=== PATIENT | male | born 1935 | race Caucasian/White ===

== ENCOUNTER → 2018-04-23 | Outpatient (REF) | payer MEDICARE ==
[2018-04-23 13:24] LABS: APPEARANCE, URINE HAZY (CLEAR); BACTERIA, URINE AUTO NEGATIVE (NEGATIVE); BILIRUBIN, URINE AUTO NEGATIVE (NEGATIVE); BLOOD, URINE BLOOD NEGATIVE (NEGATIVE); COLOR, URINE YELLOW (YELLOW); GLUCOSE, URINE (UA) AUTO NEGATIVE (NEGATIVE); KETONE, URINE AUTO TRACE mg/dL (NEGATIVE); LEUKOCYTE ESTERASE, URINE AUTO NEGATIVE (NEGATIVE); MUCUS, URINE SMALL (NEGATIVE); NITRITE, URINE AUTO NEGATIVE (NEGATIVE); PROTEIN, URINE AUTO NEGATIVE (NEGATIVE); RBC, URINE AUTO 1 /HPF (0-3); SPECIFIC GRAVITY URINE AUTO 1.025 (1.002-1.035); SQUAMOUS EPITHELIAL CELL UR AU 0 /HPF (0-6); UROBILINOGEN, URINE AUTO 0.2 mg/dL (0.0-2.0); WBC, URINE AUTO 1 /HPF (0-3)
== END ==
LOC: M SMT 12:53
DX: N40.1 Benign prostatic hyperplasia with lower urinary tract symptoms (principal)
CPT/HCPCS: 81001

== ENCOUNTER → 2018-09-08 | Outpatient (REF) | payer MEDICARE | LOC: M SMT 12:54 | DX: N40.1 Benign prostatic hyperplasia with lower urinary tract symptoms (principal) | CPT/HCPCS: 87086 ==

== ENCOUNTER → 2019-02-24 | Outpatient (CLI) | payer MEDICARE ==
--- NOTE | 2019-02-24 15:56 | REP ---
HISTORY: Cough. COMPARISON: None. There is left CP angle blunting. There has been previous median sternotomy. The heart is not enlarged. Chronic change is seen involving the imaged spine. IMPRESSION: Left CP angle blunting of uncertain etiology. There are no priors for comparison. Chest CT is warranted. Electronically Signed by Jas Mendez DO 02/24/2019 04:35 P
== END ==
LOC: M WUC 11:46
PROVIDERS: ATTEND Family Medicine
DX: R91.8 Other nonspecific abnormal finding of lung field (principal)

== ENCOUNTER → 2019-05-11 | Outpatient (REF) | payer MEDICARE ==
[2019-05-11 13:26] LABS: BASO # 0.1 10^3/uL (0.0-0.2); BASO % 0.7 % (0.0-1.0); EOS # 0.3 10^3/uL (0.0-0.50); EOS % 3.2 % (0.0-3.0); HEMATOCRIT 52.1 % (42.0-52.0); HEMOGLOBIN 16.5 g/dl (13.5-17.5); LYMPH % 23.3 % (24.0-44.0); MEAN CORPUSCULAR HGB CONC 31.7 g/dl (32.0-36.5); MEAN CORPUSCULAR VOLUME 94.7 fl (80.0-96.0); MONO # 0.8 10^3/uL (0.0-0.8); NEUTROPHILS # 5.6 10^3/uL (1.8-7.7); NEUTROPHILS % 63.5 % (36.0-66.0); PLATELET COUNT, AUTOMATED 185 10^3/uL (150-450); WHITE BLOOD COUNT 8.8 10^3/uL (4.0-10.0)
[2019-05-11 13:52] LABS: HEMOGLOBIN A1c 6.1 %
[2019-05-11 14:02] LABS: ERYTHROCYTE SEDIMENTATION RATE 2 mm/hr (0-20)
[2019-05-11 14:06] LABS: ALBUMIN 3.4 GM/DL (3.2-5.2); ALT/SGPT 48 U/L (12-78); BILIRUBIN,TOTAL 0.5 MG/DL (0.2-1.0); BLOOD UREA NITROGEN 18 MG/DL (7-18); CALCIUM LEVEL 8.8 MG/DL (8.8-10.2); CARBON DIOXIDE LEVEL 28 MEQ/L (21-32); CHLORIDE LEVEL 107 MEQ/L (98-107); FOLATE > 24.0 NG/ML (>5.4); FREE T4 0.87 NG/DL (0.76-1.46); GLOMERULAR FILTRATION RATE > 60.0 (>35); GLUCOSE, FASTING 83 MG/DL (70-100); POTASSIUM SERUM 4.3 MEQ/L (3.5-5.1); RHEUMATOID FACTOR QUANT < 10.0 IU/ML (<15.0); SODIUM LEVEL 142 MEQ/L (136-145); TOTAL PROTEIN 6.1 GM/DL (6.4-8.2); VITAMIN B12 LEVEL 502 PG/ML (247-911)
[2019-05-14 14:07] LABS: ANTINUCLEAR ANTIBODIES DIRECT Negative (Negative); VITAMIN B1 LEVEL WHOLE BLOOD 188.8 nmol/L (66.5-200.0); VITAMIN B6,PYRIDOXAL PHOSPHATE 21.3 ug/L (5.3-46.7); VITAMIN E(ALPHA TOCOPHEROL) 13.3 mg/L (9.0-29.0); VITAMIN E(GAMMA TOCOPHEROL) 0.3 mg/L (0.5-4.9)
== END ==
LOC: M LABNEURO 11:19
PROVIDERS: ATTEND Psychiatry & Neurology Neurology
DX: Z11.3 Encounter for screening for infections with a predominantly sexual mode of transmission (principal); F03.90 Unspecified dementia, unspecified severity, without behavioral disturbance, psychotic disturbance, mood disturbance, and anxiety; E07.9 Disorder of thyroid, unspecified; E11.9 Type 2 diabetes mellitus without complications

== ENCOUNTER 2020-09-05 14:03 | Inpatient (IN) | payer MEDICARE ==
[~2020-09-05] VITALS: Ht 180.3 cm; Wt 84.3 kg
[2020-09-05] MEDS ORDERED: MEMA10TA19 PO (14:15)
[2020-09-05] MEDS ORDERED: ATOR40TA75 PO (14:15)
[2020-09-05] MEDS ORDERED: DONE10TA90 PO (14:15)
[2020-09-05] MEDS ORDERED: VITA50005 PO (14:15)
--- NOTE | 2020-09-05 14:46 | REP ---
INDICATION: AMS. COMPARISON: None. TECHNIQUE: Standard noncontrast protocol with soft tissue and bone windows for each slice level. Coronal reconstructions provided. FINDINGS: Lateral ventricles are midline symmetric dilated proportionate to the moderately severe diffuse atrophy. Third and 4th ventricles are also mildly dilated that atrophy is greatest in the frontal and temporal lobes but is present throughout. Basal ganglia symmetric there heterogeneous low-attenuation white matter changes bilaterally representing chronic small vessel white matter ischemic disease. There is no vascular territory infarct, intracranial hemorrhage, mass or mass effect. Brainstem intact. Cerebellum shows moderately severe atrophy. No posterior fossa hemorrhage. Skull base bone windows show the mastoids, sphenoids and frontal sinuses clear. There is mucosal thickening and left maxillary sinus. Right maxillary and ethmoids visualized in part and were unremarkable. There is no fracture or focal lesion of the skull base or calvarium. Atherosclerotic calcifications of the carotid siphons. IMPRESSION: 1. Chronic small-vessel white matter ischemic changes of aging with proportionate ventriculomegaly and a moderately severe diffuse cerebral and cerebellar atrophy. No acute infarct, intracranial hemorrhage, mass or mass effect. 2. No fracture of the skull base or calvarium. Mastoids, sphenoids and frontal sinuses clear. There is mucosal thickening in the left maxillary antrum. <Electronically signed by Everton Ivory > 09/05/20 [id number]
--- NOTE | 2020-09-05 15:09 | REP ---
INDICATION: AMS. COMPARISON: Comparison chest x-ray February 24, 2019. TECHNIQUE: Two views.. FINDINGS: Median sternotomy wires and mediastinal clips are noted. The lungs are symmetrically aerated. There is a linear density in the left base consistent with discoid atelectasis and/or fibrosis. Pleural angles are sharp. Mild cardiomegaly is observed. Cardiothoracic ratio is 51.0%. The aorta is calcific and tortuous. Pulmonary vasculature is not increased. There are degenerative changes in the thoracic spine. IMPRESSION: Prior median sternotomy. Linear platelike atelectasis versus fibrosis left base. Otherwise no acute disease.. <Electronically signed by Soy Cramer > 09/05/20 [id number]
[2020-09-05 15:53] LABS: BASO # 0.1 10^3/uL (0.0-0.2); BASO % 0.8 % (0.0-1.0); EOS # 0.4 10^3/uL (0.0-0.5); HEMATOCRIT 44.5 % (42.0-52.0); HEMOGLOBIN 13.7 g/dl (13.5-17.5); LYMPH # 1.9 10^3/uL (1.5-5.0); MEAN CORPUSCULAR HEMOGLOBIN 29.2 pg (27.0-33.0); MEAN CORPUSCULAR HGB CONC 30.8 g/dl (32.0-36.5); MEAN CORPUSCULAR VOLUME 94.9 fl (80.0-96.0); MONO # 0.7 10^3/uL (0.0-0.8); MONO % 9.5 % (0.0-5.0); NEUTROPHILS # 4.4 10^3/uL (1.5-8.5); NEUTROPHILS % 59.4 % (36.0-66.0); PLATELET COUNT, AUTOMATED 194 10^3/uL (150-450); RED BLOOD COUNT 4.69 10^6/uL (4.30-6.10); WHITE BLOOD COUNT 7.5 10^3/uL (4.0-10.0)
[2020-09-05 16:31] LABS: BLOOD UREA NITROGEN 21 MG/DL (7-18); CALCIUM LEVEL 9.1 MG/DL (8.8-10.2); CARBON DIOXIDE LEVEL 29 MEQ/L (21-32); CHLORIDE LEVEL 110 MEQ/L (98-107); CK-MB VALUE MASS 3.3 NG/ML (<3.6); CPK CREATINE PHOSPHOKINASE 194 U/L (39-308); CREATININE FOR GFR 0.93 MG/DL (0.70-1.30); FREE T4 1.04 NG/DL (0.76-1.46); GLOMERULAR FILTRATION RATE > 60.0 (>35); GLUCOSE, FASTING 92 MG/DL (70-100); POTASSIUM SERUM 5.1 MEQ/L (3.5-5.1); SODIUM LEVEL 144 MEQ/L (136-145); TROPONIN I < 0.02 NG/ML (< 0.10)
--- NOTE | 2020-09-05 19:20 | HPEPDOC ---
General Date of Admission 09/05/20 Date of Service: Sep 05, 2020 Chief Complaint The patient is a 84-year-old male admitted with a reason for visit of Gen Med. Source: Patient, Family, RN/MD History of Present Illness 84 year old male from home lives with with PMD of Dementia, CAD/CABG, , who has not taken any medications for 2 months, has not changes his clothes for 1 year has not brushed his teeth for 6 months has urinary and stool incontinence in the bed and all over the house presented to the ED as his elderly is unable to take care of him anymore at home. has been trying for 1 year though the PMD dr Koch for watermelon inspector placement with out any success. Today she called Dr Pollock's office to discuss what she could do about his dementia and how to get him into a fpc as he was unmanageable at home. As per no problem walking, no problem with eating or swallowing, recognizes known people but very poor memory span. He normally does not wander but has been getting a little ansty sitting in the ED room and has been asking when he can go home. On my interview he knew his name and that he was in the hospital did not know the name of the hospital or the town, Did not know the date or year. He did not offer any complaints. complained of his leg swelling for months. As per he is not physically abusive but is verbally and emotionally abusive. He would open his clothes and walk around the house naked and would have bowel and bladder movements all over the house which will run down his legs. He is always dirty and disheveled and would not allow anyone to clean him. He refuses to wear incontinent pants. Home Medications Scheduled Atorvastatin Calcium (Atorvastatin Calcium) 40 Mg Tablet, 40 MG PO DAILY, (Reported) Donepezil HCl (Donepezil HCl) 10 Mg Tablet, 10 MG PO DAILY, (Reported) Ergocalciferol (Vitamin D2) (Vitamin D2) 50,000 Units Cap, 50,000 UNITS PO 1XWK, (Reported) Memantine HCl (Memantine HCl) 10 Mg Tablet, 10 MG PO BID, (Reported) Allergies Coded Allergies: Penicillins (Verified Allergy, Unknown, 09/05/20) tetracycline (Verified Allergy, Unknown, 11/9/20) Past Medical History Medical History DEMENTIA CAD- CABG IN 2009 HTN AORTIC STENOSIS COPD HYPOGONADISM Family History Mother at 92 from Old age Father was car ferry captain lost to Sea in an early age. 2 older sisters , copd, alcoholic another 2 older sisters alive and healthy 89 years and 91 years. Social History * Smoker: former Smoker Alcohol: Denies Drugs: denies A-FIB/CHADSVASC A-FIB History Current/History of A-Fib/PAF?: No Review of Systems Constitutional: Denies: Chills, Fever, Night Sweats Eyes: Denies: Pain, Vision change ENT: Denies: Head Aches, Ear Pain, Dysphagia Skin: Reports: Itching, Dry Pulmonary: Denies: Dyspnea, Cough Cardiovascular: Reports: Edema; Denies: Chest Pain, Palpitations, Orthopnea, Paroxysmal Noc. Dyspnea, Lt Headedness Gastrointestinal: Denies: Nausea, Vomiting, Abdominal Pain, Diarrhea Genitourinary: Reports: Incontinence (both urine and stool) Hematologic: Denies: Bruising, Bleeding Excessively Musculoskeletal: Denies: Neck Pain, Back Pain, Joint Pain, Muscle Pain, Spasms Psych: Reports: Memory Issues Physical Examination General Exam: Positive: Alert, Cooperative, No Acute Distress, Other (dishelled and dirty) Eye Exam: Positive: PERRLA, Conjunctiva & lids normal, EOMI; Negative: Sclera icteric ENT Exam: Positive: Atraumatic, Mucous membr. moist/pink, Pharynx Normal Neck Exam: Positive: Supple; Negative: JVD, thyromegaly Chest Exam: Positive: Clear to auscultation, Normal air movement Heart Exam: Positive: Rate Normal, Regular Rhythm, Normal S1, Normal S2, Murmurs; Negative: Rubs Abdomen Exam: Positive: Normal bowel sounds, Soft; Negative: Tenderness, Hepatospenomegaly Extremity Exam: Positive: Edema (bipedal 3 +), Normal pulses; Negative: Clubbing, Cyanosis Skin Exam: Positive: Lesion (at yariel hernandez of right leg) Neuro Exam: Positive: Normal Speech, Strength at 5/5 X4 ext Psych Exam: Positive: Other (dementia) Vital Signs Vital Signs Date Time Temp Pulse Resp B/P (MAP) Pulse Ox O2 Delivery O2 Flow Rate FiO2 09/05/20 15:17 09/05/20 14:04 98.1 81 19 98 Room Air Laboratory Data Labs 24H Laboratory Tests 2 09/05/20 15:43: Immature Granulocyte % (Auto) 0.3, Neutrophils (%) (Auto) 59.4, Lymphocytes (%) (Auto) 25.0, Monocytes (%) (Auto) 9.5H, Eosinophils (%) (Auto) 5.0H, Basophils (%) (Auto) 0.8, Neutrophils # (Auto) 4.4, Lymphocytes # (Auto) 1.9, Monocytes # (Auto) 0.7, Eosinophils # (Auto) 0.4, Basophils # (Auto) 0.1, Nucleated Red Blood Cells % (auto) 0.0, Anion Gap 5L, Glomerular Filtration Rate > 60.0, Calcium Level 9.1, Total Creatine Kinase 194, Creatine Kinase MB 3.3, Creatine Kinase MB Relative Index 1.70, Troponin I < 0.02, Thyroid Stimulating Hormone (TSH) 1.810, Free Thyroxine 1.04 09/05/20 17:04: Coronavirus (COVID-19)(PCR) NEGATIVE CBC/BMP Laboratory Tests 09/05/20 15:43 Assessment/Plan 84 year old male from home lives with with PMD of Dementia, CAD/CABG, , who has not taken any medications for 2 months, has not changes his clothes for 1 year has not brushed his teeth for 6 months has urinary and stool incontinence in the bed and all over the house presented to the ED as his elderly is unable to take care of him anymore at home. he is for senior living placement for advancing dementia with some behavioral issues. Advanced dementia with behavioral issues will place on seroquel prn was on donepezil adn memantine at home will not start them sitter CAD/CABG has not taken any medicine in 2 months will resume statin and ASA. was evaluated by Dr stern last year and was told too high risk for surgery. Plan / VTE VTE Prophylaxis Ordered?: Yes ESTRADA BEARDEN MD Sep 05, 2020 19:20
[2020-09-05 22:03] VITALS: BP 170/74
[2020-09-06] VITALS: BP 154/76
--- NOTE | 2020-09-06 01:02 | ECGEPIP ---
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
[2020-09-06 04:00] VITALS: BP 146/67
[2020-09-06 05:46] LABS: BASO % 0.7 % (0.0-1.0); EOS # 0.3 10^3/uL (0.0-0.5); HEMATOCRIT 40.9 % (42.0-52.0); HEMOGLOBIN 13.1 g/dl (13.5-17.5); LYMPH # 1.6 10^3/uL (1.5-5.0); LYMPH % 26.4 % (24.0-44.0); MEAN CORPUSCULAR HEMOGLOBIN 29.8 pg (27.0-33.0); MONO # 0.6 10^3/uL (0.0-0.8); MONO % 9.5 % (0.0-5.0); NEUTROPHILS # 3.5 10^3/uL (1.5-8.5); NEUTROPHILS % 58.2 % (36.0-66.0); PLATELET COUNT, AUTOMATED 180 10^3/uL (150-450)
[2020-09-06 06:12] LABS: BLOOD UREA NITROGEN 15 MG/DL (7-18); CALCIUM LEVEL 8.5 MG/DL (8.8-10.2); CARBON DIOXIDE LEVEL 30 MEQ/L (21-32); CHLORIDE LEVEL 110 MEQ/L (98-107); CREATININE FOR GFR 0.83 MG/DL (0.70-1.30); GLOMERULAR FILTRATION RATE > 60.0 (>35); GLUCOSE, FASTING 91 MG/DL (70-100); POTASSIUM SERUM 3.4 MEQ/L (3.5-5.1); SODIUM LEVEL 145 MEQ/L (136-145)
[2020-09-06] MEDS ORDERED: POTASSIUM CHLORIDE 10 MEQ SR TABLET PO ONE (07:30)
[2020-09-06 07:49] VITALS: BP 132/63
[2020-09-06] MEDS: ASPIRIN 81 MG ENTERIC TAB PO SCH (08:29)
[2020-09-06] MEDS: ATORVASTATIN 20 MG TAB PO SCH (08:29)
[2020-09-06] MEDS: ENOXAPARIN 40MG/0.4ML SYRINGE (J1650 PER 10MG) SC SCH (08:30)
--- NOTE | 2020-09-06 10:06 | IPNPDOC ---
Subjective Date Seen The patient was seen on 09/06/20. Subjective Chief Complaint/HPI No events overnight. [place] talking to himself but is calm and cooperation and not combative. As per nurses has not tried to get out of bed and walk out by himself. Objective Physical Examination General Exam: Positive: Alert, Cooperative, No Acute Distress, Other (dishelled and dirty) Eye Exam: Positive: PERRLA, Conjunctiva & lids normal, EOMI; Negative: Sclera icteric ENT Exam: Positive: Atraumatic, Mucous membr. moist/pink, Pharynx Normal Neck Exam: Positive: Supple; Negative: JVD, thyromegaly Chest Exam: Positive: Clear to auscultation, Normal air movement Heart Exam: Positive: Rate Normal, Regular Rhythm, Normal S1, Normal S2, Murmurs (systolic); Negative: Rubs Abdomen Exam: Positive: Normal bowel sounds, Soft; Negative: Tenderness, Hepatospenomegaly Extremity Exam: Positive: Edema (bipedal 3 +), Normal pulses; Negative: Clubbing, Cyanosis Skin Exam: Positive: Lesion (at yariel hernandez of right leg) Neuro Exam: Positive: Normal Speech, Strength at 5/5 X4 ext Psych Exam: Positive: Other (dementia) Assessment /Plan Assessment 84 year old male from home lives with with PMD of Dementia, CAD/CABG, , who has not taken any medications for 2 months, has not changes his clothes for 1 year has not brushed his teeth for 6 months has urinary and stool incontinence in the bed and all over the house presented to the ED as his elderly is unable to take care of him anymore at home. he is for parts counterman placement for advancing dementia with some behavioral issues. Advanced dementia with behavioral issues will place on seroquel prn was on donepezil and memantine at home will not start them sitter CAD/CABG has not taken any medicine in 2 months will resume statin and ASA. was evaluated by Dr stern last year and was told too high risk for surgery. Plan/VTE VTE Prophylaxis Ordered?: Yes VS, I&O, 24H, Fishbone Vital Signs/I&O Vital Signs Date Time Temp Pulse Resp B/P (MAP) Pulse Ox O2 Delivery O2 Flow Rate FiO2 09/06/20 07:49 98.3 67 20 132/63 (86) 94 Room Air I&O- Last 24 Hours up to 6 AM 09/06/20 05:59 Intake Total 0 ml Output Total 0 ml Balance 0 ml Laboratory Data 24H LABS Laboratory Tests 2 09/05/20 15:43: Immature Granulocyte % (Auto) 0.3, Neutrophils (%) (Auto) 59.4, Lymphocytes (%) (Auto) 25.0, Monocytes (%) (Auto) 9.5H, Eosinophils (%) (Auto) 5.0H, Basophils (%) (Auto) 0.8, Neutrophils # (Auto) 4.4, Lymphocytes # (Auto) 1.9, Monocytes # (Auto) 0.7, Eosinophils # (Auto) 0.4, Basophils # (Auto) 0.1, Nucleated Red Blood Cells % (auto) 0.0, Anion Gap 5L, Glomerular Filtration Rate > 60.0, Calcium Level 9.1, Total Creatine Kinase 194, Creatine Kinase MB 3.3, Creatine Kinase MB Relative Index 1.70, Troponin I < 0.02, Thyroid Stimulating Hormone (TSH) 1.810, Free Thyroxine 1.04 09/05/20 17:04: Coronavirus (COVID-19)(PCR) NEGATIVE 09/06/20 05:23: Immature Granulocyte % (Auto) 0.2, Neutrophils (%) (Auto) 58.2, Lymphocytes (%) (Auto) 26.4, Monocytes (%) (Auto) 9.5H, Eosinophils (%) (Auto) 5.0H, Basophils (%) (Auto) 0.7, Neutrophils # (Auto) 3.5, Lymphocytes # (Auto) 1.6, Monocytes # (Auto) 0.6, Eosinophils # (Auto) 0.3, Basophils # (Auto) 0.0, Nucleated Red Blood Cells % (auto) 0.0, Anion Gap 5L, Glomerular Filtration Rate > 60.0, Calcium Level 8.5L CBC/BMP Laboratory Tests 09/05/20 15:43 09/06/20 05:23 ESTRADA BEARDEN MD Sep 06, 2020 10:06
[2020-09-06 16:00] VITALS: BP 137/66
[2020-09-06 20:00] VITALS: BP 150/67
[2020-09-06] MEDS: QUEtiapine FUMARATE 25 MG TAB PO SCH (20:00)
[2020-09-07 04:00] VITALS: BP 160/82
[2020-09-07 07:36] VITALS: BP 172/76
--- NOTE | 2020-09-07 07:42 | IPNPDOC ---
Subjective Date Seen The patient was seen on 09/07/20. Subjective Chief Complaint/HPI Pleasantly confused. Cooperative, no issues overnight. Ambulatory and feeds himself. Objective Physical Examination General Exam: Positive: Alert, Cooperative, No Acute Distress, Other (dishelled and dirty) Eye Exam: Positive: PERRLA, Conjunctiva & lids normal, EOMI; Negative: Sclera icteric ENT Exam: Positive: Atraumatic, Mucous membr. moist/pink, Pharynx Normal Neck Exam: Positive: Supple; Negative: JVD, thyromegaly Chest Exam: Positive: Clear to auscultation, Normal air movement Heart Exam: Positive: Rate Normal, Regular Rhythm, Normal S1, Normal S2, Murmurs (systolic); Negative: Rubs Abdomen Exam: Positive: Normal bowel sounds, Soft; Negative: Tenderness, Hepatospenomegaly Extremity Exam: Positive: Edema (bipedal 3 +), Normal pulses; Negative: Clubbing, Cyanosis Skin Exam: Positive: Lesion (at yariel hernandez of right leg) Neuro Exam: Positive: Normal Speech, Strength at 5/5 X4 ext Psych Exam: Positive: Other (dementia) Assessment /Plan Assessment 84 year old male from home lives with with PMD of Dementia, CAD/CABG, , who has not taken any medications for 2 months, has not changes his clothes for 1 year has not brushed his teeth for 6 months has urinary and stool incontinence in the bed and all over the house presented to the ED as his elderly is unable to take care of him anymore at home. he is for senior living placement for advancing dementia with some behavioral issues. Advanced dementia with behavioral issues will place on seroquel at hs was on donepezil and memantine at home will not start them sitter prn CAD/CABG has not taken any medicine in 2 months will resume statin and ASA. was evaluated by Dr Frausto last year and was told too high risk for surgery. Dispo: senior living placement. Plan/VTE VTE Prophylaxis Ordered?: Yes VS, I&O, 24H, Fishbone Vital Signs/I&O Vital Signs Date Time Temp Pulse Resp B/P (MAP) Pulse Ox O2 Delivery O2 Flow Rate FiO2 09/07/20 07:36 97.0 73 18 172/76 (108) 95 Room Air I&O- Last 24 Hours up to 6 AM 11/11/20 05:59 Intake Total 960 ml Output Total 0 ml Balance 960 ml ESTRADA BEARDEN MD Sep 07, 2020 07:42
[2020-09-07] MEDS: ASPIRIN 81 MG ENTERIC TAB PO SCH (09:00)
[2020-09-07] MEDS: ENOXAPARIN 40MG/0.4ML SYRINGE (J1650 PER 10MG) SC SCH (09:00)
[2020-09-07] MEDS: ATORVASTATIN 20 MG TAB PO SCH (09:00)
[2020-09-07 16:00] VITALS: BP 144/68
[2020-09-07 19:20] VITALS: BP 164/74
[2020-09-07] MEDS: QUEtiapine FUMARATE 25 MG TAB PO SCH (20:07)
[2020-09-08 04:00] VITALS: BP 158/86
[2020-09-08] MEDS: ATORVASTATIN 20 MG TAB PO SCH (07:59)
[2020-09-08] MEDS: ENOXAPARIN 40MG/0.4ML SYRINGE (J1650 PER 10MG) SC SCH (07:59)
[2020-09-08] MEDS: ASPIRIN 81 MG ENTERIC TAB PO SCH (07:59)
[2020-09-08 08:00] VITALS: BP 166/74
[2020-09-08 12:00] VITALS: BP 122/60
[2020-09-08 20:00] VITALS: BP 138/78
[2020-09-08] MEDS: QUEtiapine FUMARATE 25 MG TAB PO SCH (20:52)
[2020-09-09] VITALS (7 sets, daily range): BP systolic 137–168; BP diastolic 59–76
[2020-09-09] MEDS: ASPIRIN 81 MG ENTERIC TAB PO SCH (08:11)
[2020-09-09] MEDS: ENOXAPARIN 40MG/0.4ML SYRINGE (J1650 PER 10MG) SC SCH (08:12)
[2020-09-09] MEDS: ATORVASTATIN 20 MG TAB PO SCH (08:12)
[2020-09-09] MEDS: QUEtiapine FUMARATE 25 MG TAB PO SCH (20:16)
[2020-09-10 04:00] VITALS: BP 148/66
[2020-09-10 07:45] VITALS: BP 131/66
[2020-09-10] MEDS: ATORVASTATIN 20 MG TAB PO SCH (08:00)
[2020-09-10] MEDS: ASPIRIN 81 MG ENTERIC TAB PO SCH (08:00)
[2020-09-10] MEDS: ENOXAPARIN 40MG/0.4ML SYRINGE (J1650 PER 10MG) SC SCH (08:00)
[2020-09-10 16:45] VITALS: BP 141/74
[2020-09-10] MEDS: QUEtiapine FUMARATE 25 MG TAB PO SCH (20:26)
[2020-09-10 20:58] VITALS: BP 135/67
[2020-09-11 06:08] VITALS: BP 146/77
[2020-09-11] MEDS: ASPIRIN 81 MG ENTERIC TAB PO SCH (08:19)
[2020-09-11] MEDS: ATORVASTATIN 20 MG TAB PO SCH (08:19)
[2020-09-11] MEDS: ENOXAPARIN 40MG/0.4ML SYRINGE (J1650 PER 10MG) SC SCH (08:19)
[2020-09-11] MEDS: QUEtiapine FUMARATE 25 MG TAB PO SCH (20:50)
[2020-09-12 06:00] VITALS: BP 155/72
[2020-09-12] MEDS: ASPIRIN 81 MG ENTERIC TAB PO SCH (08:49)
[2020-09-12] MEDS: ATORVASTATIN 20 MG TAB PO SCH (08:49)
[2020-09-12] MEDS: ENOXAPARIN 40MG/0.4ML SYRINGE (J1650 PER 10MG) SC SCH (08:50)
[2020-09-12] MEDS: QUEtiapine FUMARATE 25 MG TAB PO SCH (21:03)
[2020-09-13 06:00] VITALS: BP 142/76
[2020-09-13] MEDS: ASPIRIN 81 MG ENTERIC TAB PO SCH (08:57)
[2020-09-13] MEDS: ATORVASTATIN 20 MG TAB PO SCH (08:57)
[2020-09-13] MEDS: ENOXAPARIN 40MG/0.4ML SYRINGE (J1650 PER 10MG) SC SCH (08:58)
--- NOTE | 2020-09-13 13:20 | IPNPDOC ---
Date Seen The patient was seen on 09/13/20. Progress Note SUBJECTIVE: No events overnight. Denies chest pain, n/v/d, fevers, or chills. OBJECTIVE: VITAL SIGNS: Please see below PHYSICAL EXAMINATION: CONSTITUTIONAL: No acute distress, resting comfortably sitting up in bed, AAO x 2 EYES: PERRLA, EOM intact HENT, MOUTH: Normocephalic, atraumatic, moist mucous membranes NECK: SUPPLE, no JVD, no lymphadenopathy, no carotid bruit CV: Regular rate and rhythm, S1S2 normal, no murmurs/rubs/gallops RESPIRATORY: Clear to auscultation bilaterally, no rales/rhonchi/wheezes GI: BS positive in 4 quadrants, soft, nontender, nondistended, no rebound or guarding, no organomegaly : Deferred MUSCULOSKELETAL: Normal ROM. No cyanosis, clubbing, swelling, joint deformity, extremity edema INTEGUMENTARY: Intact, no rashes, no lesions, no erythema NEUROLOGIC: Cranial Nerves II-XII are intact, no focal deficits PSYCHIATRIC: Mood and affect are normal CURRENT MEDICATIONS: Please see below LABORATORY DATA: Please see below IMAGING: No new imaging ASSESSMENT: 84 y/o M with PMH of Dementia, CAD/CABG, currently awaiting buttermaker helper placement for advancing dementia with some behavioral issues. PLAN: # Advanced dementia with behavioral issues -Stable over last 48 H -C/w Seroquel at hs #CAD/CABG -C/w statin and ASA. # -Stable -Evaluated by Dr. Frausto last year and was told too high risk for surgery. #DVT px -Enoxaparin DISPOSITION: Currently awaiting senior care placement. ALC status VS, I&O, 24H, Fishbone Vital Signs/I&O Vital Signs Date Time Temp Pulse Resp B/P (MAP) Pulse Ox O2 Delivery O2 Flow Rate FiO2 09/13/20 06:00 98.6 77 18 142/76 (98) 95 Room Air I&O- Last 24 Hours up to 6 AM 09/13/20 06:00 Intake Total 440 ml Output Total 0 ml Balance 440 ml Laboratory Data 24H LABS Laboratory Tests 2 09/12/20 19:27: Coronavirus (COVID-19)(PCR) NEGATIVE Current Medications Current Medications Medications (Trade) Dose Ordered Sig/Joseluis Route PRN Reason Start Time Stop Time Status Last Admin Dose Admin Aspirin (Ecotrin) 81 mg DAILY PO 09/06/20 09:00 09/13/20 08:57 Atorvastatin Calcium (Lipitor) 40 mg DAILY PO 09/06/20 09:00 09/13/20 08:57 Enoxaparin Sodium (Lovenox) 40 mg DAILY SC 09/06/20 09:00 09/13/20 08:58 Home Med (Med Rec Complete!) ASDIRECTED XX 09/05/20 19:15 09/05/20 19:13 DC Quetiapine Fumarate (SEROquel) 25 mg QHS PO 09/06/20 21:00 09/12/20 21:03 Allergies Coded Allergies: Penicillins (Verified Allergy, Unknown, 09/05/20) tetracycline (Verified Allergy, Unknown, 09/05/20) Echo Schaffer MD Sep 13, 2020 13:20
[2020-09-13] MEDS: QUEtiapine FUMARATE 25 MG TAB PO SCH (20:17)
[2020-09-14] MEDS ORDERED: ASPI81TAEC PO (08:11)
[2020-09-14] MEDS ORDERED: QUET1TAB7 PO (08:11)
[2020-09-14] MEDS: ATORVASTATIN 20 MG TAB PO SCH (08:32)
[2020-09-14] MEDS: ASPIRIN 81 MG ENTERIC TAB PO SCH (08:32)
[2020-09-14] MEDS: ENOXAPARIN 40MG/0.4ML SYRINGE (J1650 PER 10MG) SC SCH (08:33)
--- NOTE | 2020-09-14 16:41 | DS.PDOC ---
Discharge Summary General Date of Admission Sep 05, 2020 at 19:12 Date of Discharge 09/14/20 Attending Physician: Echo Schaffer MD Discharge Summary HPI: 84 year old male from home lives with with PMD of Dementia, CAD/CABG, , who had not taken any medications for 2 months, had not changed his clothes for 1 year and had not brushed his teeth for 6 months. Had known urinary and stool incontinence in the bed and all over the house. Patient presented to the ED as his elderly is unable to take care of him anymore at home. has been trying for 1 year though the PMD dr Koch for fdc placement with out any success. On day of admission 09/05/20, patient's called Dr Pollock's office to discuss what she could do about his dementia and how to get him into a assisted as he was unmanageable at home. As per he had no problem walking, no problem with eating or swallowing, recognizes known people but very poor memory span. He normally does not wander but has been getting a little ansty sitting in the ED room and has been asking when he can go home. On admission interview he knew his name and that he was in the hospital did not know the name of the hospital or the town, did not know the date or year. complained of his leg swelling for months. As per he is not physically abusive but is verbally and emotionally abusive. He would open his clothes and walk around the house naked and would have bowel and bladder movements all over the house which will run down his legs. He was always dirty and disheveled and would not allow anyone to clean him. He refused to wear incontinent pants. He was admitted for likely placement to skilled facility, worsening dementia. HOSPITAL COURSE: During patient's hospitalization, prior home medications were discontinued. He was started on seroquel 25 mg PO HS which helped with his sleeping and behaviors. He was kept in hospital while placement was arranged. On 09/14/20 patient was discharged to SNF with seroquel, ASA, statin as only medications. He denied chest pain, n/v/d, fevers, chills, shortness of breath. PMH: DEMENTIA CAD- CABG IN 2008 HTN AORTIC STENOSIS COPD HYPOGONADISM Surgical Hx: unknown FH: Mother at 92 from Old age Father was bellhop service captain lost to Sea in an early age. 2 older sisters , copd, alcoholic another 2 older sisters alive and healthy 89 years and 91 years. Social History Smoker: former Smoker Alcohol: Denies Drugs: denies ALLERGIES: Please see below. DISCHARGE MEDICATIONS: Please see below. PHYSICAL EXAMINATION: CONSTITUTIONAL: No acute distress, resting comfortably sitting up in bed, AAO x 1, following commands, appropriate but confused EYES: PERRLA, EOM intact HENT, MOUTH: Normocephalic, atraumatic, moist mucous membranes NECK: SUPPLE, no JVD, no lymphadenopathy, no carotid bruit CV: Regular rate and rhythm, S1S2 normal, no murmurs/rubs/gallops RESPIRATORY: Clear to auscultation bilaterally, no rales/rhonchi/wheezes GI: BS positive in 4 quadrants, soft, nontender, nondistended, no rebound or guarding, no organomegaly : Deferred MUSCULOSKELETAL: Normal ROM. No cyanosis, clubbing, swelling, joint deformity, extremity edema INTEGUMENTARY: Intact, no rashes, no lesions, no erythema NEUROLOGIC: Cranial Nerves II-XII are intact, no focal deficits CURRENT MEDICATIONS: Please see below LABORATORY DATA: Please see below IMAGING: CT head: 1. Chronic small-vessel white matter ischemic changes of aging with proportionate ventriculomegaly and a moderately severe diffuse cerebral and cerebellar atrophy. No acute infarct, intracranial hemorrhage, mass or mass effect. 2. No fracture of the skull base or calvarium. Mastoids, sphenoids and frontal sinuses clear. There is mucosal thickening in the left maxillary antrum. ASSESSMENT: 84 y/o M with PMH of Dementia, CAD/CABG, treated for advancing dementia with behavioral issues requiring long-term placement in SNF. PLAN: # Advanced dementia with behavioral issues -C/w Seroquel at hs -Stopped prior home medications -Redirect whenever possible #CAD/CABG -C/w statin and ASA. # -Stable -Evaluated by Dr. Frausto last year and was told too high risk for surgery. DISPOSITION: Discharge today to [facility] TIME SPENT ON DISCHARGE: Greater than 30 minutes. Vital Signs/I&Os Vital Signs Date Time Temp Pulse Resp B/P (MAP) Pulse Ox O2 Delivery O2 Flow Rate FiO2 09/13/20 06:00 98.6 77 18 142/76 (98) 95 Room Air I&O- Last 24 Hours up to 6 AM 09/14/20 06:00 Intake Total 360 ml Output Total 0 ml Balance 360 ml Discharge Medications Scheduled Aspirin (Aspirin EC) 81 Mg Tablet.dr, 81 MG PO DAILY Atorvastatin Calcium (Atorvastatin Calcium) 40 Mg Tablet, 40 MG PO DAILY, (Reported) Quetiapine Fumarate (Quetiapine Fumarate) 25 Mg Tablet, 25 MG PO QHS Allergies Coded Allergies: Penicillins (Verified Allergy, Unknown, 09/05/20) tetracycline (Verified Allergy, Unknown, 09/05/20) Echo Schaffer MD Sep 14, 2020 16:41
== END 2020-09-14 11:42 | DRG 884 ==
LOC: M ED 14:03 → M ED INP 19:12 → ENRESERV 21:03 → M PCU 22:03 → M MS5PR 09-10 16:30
PROVIDERS: ADMIT Internal Medicine Nephrology; ATTEND Internal Medicine
DX: F03.91 Unspecified dementia, unspecified severity, with behavioral disturbance (principal); I10 Essential (primary) hypertension; J44.9 Chronic obstructive pulmonary disease, unspecified; I25.10 Atherosclerotic heart disease of native coronary artery without angina pectoris; I35.0 Nonrheumatic aortic (valve) stenosis; Z87.891 Personal history of nicotine dependence; Z79.82 Long term (current) use of aspirin; Z79.899 Other long term (current) drug therapy; Z88.0 Allergy status to penicillin; Z88.8 Allergy status to other drugs, medicaments and biological substances

== ENCOUNTER → 2020-09-15 | Outpatient (REF) | payer MEDICARE ==
[~2020-09-15] MED LIST: ASPI81TAEC PO; ATOR40TA75 PO; DONE10TA90 PO; MEMA10TA19 PO; QUET25TA3 PO; VITA50005 PO
== END ==
LOC: EDSTATUS 10-25 16:30
PROVIDERS: ATTEND Internal Medicine
DX: Z20.828 Contact with and (suspected) exposure to other viral communicable diseases (principal)

== ENCOUNTER → 2020-09-21 | Outpatient (REF) | payer MEDICARE | PROVIDERS: ATTEND Internal Medicine | DX: Z20.828 Contact with and (suspected) exposure to other viral communicable diseases (principal) ==

== ENCOUNTER → 2020-09-27 | Outpatient (REF) ==
[~2020-09-27] MED LIST changes: +QUET1TAB7 PO; -QUET25TA3 PO
[2020-09-27 11:15] LABS: HEMATOCRIT 43.6 % (42.0-52.0); HEMOGLOBIN 13.4 g/dl (13.5-17.5); MEAN CORPUSCULAR HEMOGLOBIN 29.6 pg (27.0-33.0); MEAN CORPUSCULAR HGB CONC 30.7 g/dl (32.0-36.5); MEAN CORPUSCULAR VOLUME 96.5 fl (80.0-96.0); PLATELET COUNT, AUTOMATED 203 10^3/uL (150-450); RED BLOOD COUNT 4.52 10^6/uL (4.30-6.10); WHITE BLOOD COUNT 7.1 10^3/uL (4.0-10.0)
[2020-09-27 11:45] LABS: BLOOD UREA NITROGEN 16 MG/DL (7-18); CALCIUM LEVEL 9.1 MG/DL (8.8-10.2); CARBON DIOXIDE LEVEL 32 MEQ/L (21-32); CHLORIDE LEVEL 107 MEQ/L (98-107); CREATININE FOR GFR 0.93 MG/DL (0.70-1.30); GLOMERULAR FILTRATION RATE > 60.0 (>35); GLUCOSE, FASTING 92 MG/DL (70-100); POTASSIUM SERUM 4.2 MEQ/L (3.5-5.1); SODIUM LEVEL 142 MEQ/L (136-145)
== END ==
PROVIDERS: ATTEND Internal Medicine
DX: I25.10 Atherosclerotic heart disease of native coronary artery without angina pectoris (principal)

== ENCOUNTER → 2020-10-09 | Outpatient (REF) | PROVIDERS: ATTEND Internal Medicine | DX: Z20.828 Contact with and (suspected) exposure to other viral communicable diseases (principal) ==

== ENCOUNTER → 2020-10-13 | Outpatient (REF) | PROVIDERS: ATTEND Internal Medicine | DX: Z20.828 Contact with and (suspected) exposure to other viral communicable diseases (principal) ==

== ENCOUNTER → 2020-10-18 | Outpatient (REF) | payer MEDICARE ==
[~2020-10-18] MED LIST changes: -QUET1TAB7 PO; +QUET25TA3 PO
== END ==
PROVIDERS: ATTEND Internal Medicine
DX: E86.0 Dehydration (principal); Z53.9 Procedure and treatment not carried out, unspecified reason

== ENCOUNTER → 2020-10-19 | Outpatient (REF) | payer MEDICARE ==
[2020-10-19 12:08] LABS: HEMATOCRIT 44.7 % (42.0-52.0); HEMOGLOBIN 13.7 g/dl (13.5-17.5); MEAN CORPUSCULAR HEMOGLOBIN 28.4 pg (27.0-33.0); MEAN CORPUSCULAR HGB CONC 30.6 g/dl (32.0-36.5); MEAN CORPUSCULAR VOLUME 92.7 fl (80.0-96.0); PLATELET COUNT, AUTOMATED 163 10^3/uL (150-450); RED BLOOD COUNT 4.82 10^6/uL (4.30-6.10)
[2020-10-19 12:35] LABS: BLOOD UREA NITROGEN 30 MG/DL (7-18); CALCIUM LEVEL 8.4 MG/DL (8.8-10.2); CARBON DIOXIDE LEVEL 28 MEQ/L (21-32); CHLORIDE LEVEL 102 MEQ/L (98-107); GLOMERULAR FILTRATION RATE > 60.0 (>35); GLUCOSE, FASTING 108 MG/DL (70-100); POTASSIUM SERUM 4.7 MEQ/L (3.5-5.1); SODIUM LEVEL 138 MEQ/L (136-145)
== END ==
PROVIDERS: ATTEND Physician Assistant
DX: E86.0 Dehydration (principal)

== ENCOUNTER → 2020-11-09 | Outpatient (REF) | payer MEDICARE ==
[~2020-11-09] MED LIST changes: +QUET1TAB7 PO; -QUET25TA3 PO
== END ==
PROVIDERS: ATTEND Internal Medicine
DX: Z20.822 Contact with and (suspected) exposure to COVID-19 (principal)

== ENCOUNTER → 2020-11-14 | Outpatient (REF) | payer MEDICARE ==
[~2020-11-14] MED LIST changes: -QUET1TAB7 PO; +QUET25TA3 PO
--- NOTE | 2020-11-14 16:02 | REPPI ---
INDICATION: SOB 459-1. COMPARISON: Comparison chest x-ray September 05, 2020.. TECHNIQUE: AP portable chest x-ray. FINDINGS: Patient is status post prior median sternotomy. Left hemidiaphragm is slightly elevated. There is minimal linear fibrosis in the left mid lung zone. Chronic blunting of the left lateral pleural angle is seen unchanged. No acute infiltrate is noted. Pulmonary vasculature is not increased. There is no evidence of pulmonary edema. IMPRESSION: Pleuroparenchymal scarring on the left. Prior sternotomy. No active disease seen. <Electronically signed by Soy Cramer > 11/14/20 0227
== END ==
PROVIDERS: ATTEND Internal Medicine
DX: R06.02 Shortness of breath (principal)

== ENCOUNTER → 2020-11-16 | Outpatient (REF) | payer MEDICARE ==
[2020-11-16 10:49] LABS: HEMATOCRIT 41.2 % (42.0-52.0); MEAN CORPUSCULAR HEMOGLOBIN 29.5 pg (27.0-33.0); MEAN CORPUSCULAR HGB CONC 31.6 g/dl (32.0-36.5); MEAN CORPUSCULAR VOLUME 93.6 fl (80.0-96.0); PLATELET COUNT, AUTOMATED 153 10^3/uL (150-450); WHITE BLOOD COUNT 6.5 10^3/uL (4.0-10.0)
[2020-11-16 11:17] LABS: BLOOD UREA NITROGEN 16 MG/DL (7-18); CALCIUM LEVEL 8.4 MG/DL (8.8-10.2); CARBON DIOXIDE LEVEL 30 MEQ/L (21-32); CHLORIDE LEVEL 106 MEQ/L (98-107); CREATININE FOR GFR 0.68 MG/DL (0.70-1.30); GLOMERULAR FILTRATION RATE > 60.0 (>35); GLUCOSE, FASTING 81 MG/DL (70-100); NT-PRO BNP 1709 PG/ML (<450); POTASSIUM SERUM 3.7 MEQ/L (3.5-5.1); SODIUM LEVEL 142 MEQ/L (136-145)
== END ==
PROVIDERS: ATTEND Internal Medicine
DX: I50.9 Heart failure, unspecified (principal); R60.9 Edema, unspecified; Z11.52 Encounter for screening for COVID-19

== ENCOUNTER → 2020-11-30 | Outpatient (REF) | payer MEDICARE ==
[~2020-11-30] MED LIST changes: +QUET1TAB7 PO; -QUET25TA3 PO
[2020-11-30 11:55] LABS: HEMOGLOBIN 15.1 g/dl (13.5-17.5); MEAN CORPUSCULAR HEMOGLOBIN 28.8 pg (27.0-33.0); MEAN CORPUSCULAR HGB CONC 30.2 g/dl (32.0-36.5); MEAN CORPUSCULAR VOLUME 95.2 fl (80.0-96.0); PLATELET COUNT, AUTOMATED 289 10^3/uL (150-450); RED BLOOD COUNT 5.25 10^6/uL (4.30-6.10); WHITE BLOOD COUNT 10.2 10^3/uL (4.0-10.0)
[2020-11-30 12:25] LABS: BLOOD UREA NITROGEN 29 MG/DL (7-18); CALCIUM LEVEL 8.8 MG/DL (8.8-10.2); CARBON DIOXIDE LEVEL 37 MEQ/L (21-32); CHLORIDE LEVEL 100 MEQ/L (98-107); CREATININE FOR GFR 1.02 MG/DL (0.70-1.30); GLOMERULAR FILTRATION RATE > 60.0 (>35); GLUCOSE, FASTING 90 MG/DL (70-100); SODIUM LEVEL 143 MEQ/L (136-145)
== END ==
PROVIDERS: ATTEND Internal Medicine
DX: I25.10 Atherosclerotic heart disease of native coronary artery without angina pectoris (principal)

== ENCOUNTER → 2020-12-08 | Outpatient (REF) | payer MEDICARE ==
[~2020-12-08] MED LIST changes: -QUET1TAB7 PO; +QUET25TA3 PO
[2020-12-08 09:55] LABS: HEMATOCRIT 46.7 % (42.0-52.0); HEMOGLOBIN 14.5 g/dl (13.5-17.5); MEAN CORPUSCULAR HEMOGLOBIN 29.1 pg (27.0-33.0); MEAN CORPUSCULAR VOLUME 93.8 fl (80.0-96.0); PLATELET COUNT, AUTOMATED 265 10^3/uL (150-450); RED BLOOD COUNT 4.98 10^6/uL (4.30-6.10); WHITE BLOOD COUNT 9.4 10^3/uL (4.0-10.0)
[2020-12-08 10:24] LABS: BLOOD UREA NITROGEN 35 MG/DL (7-18); CALCIUM LEVEL 8.5 MG/DL (8.8-10.2); CARBON DIOXIDE LEVEL 27 MEQ/L (21-32); CHLORIDE LEVEL 104 MEQ/L (98-107); CREATININE FOR GFR 0.97 MG/DL (0.70-1.30); GLOMERULAR FILTRATION RATE > 60.0 (>35); GLUCOSE, FASTING 171 MG/DL (70-100); POTASSIUM SERUM 4.2 MEQ/L (3.5-5.1); SODIUM LEVEL 141 MEQ/L (136-145)
== END ==
PROVIDERS: ATTEND Internal Medicine
DX: L89.159 Pressure ulcer of sacral region, unspecified stage (principal)

== ENCOUNTER → 2021-02-03 | Outpatient (REF) | payer MEDICARE ==
[~2021-02-03] MED LIST changes: +ASPI-569 PO; -ASPI81TAEC PO
[2021-02-03 15:13] LABS: INFLUENZA A AMPLIFICATION NEGATIVE (NEGATIVE); INFLUENZA B AMPLIFICATION NEGATIVE (NEGATIVE)
== END ==
PROVIDERS: ATTEND Internal Medicine
DX: Z11.52 Encounter for screening for COVID-19 (principal)

== ENCOUNTER → 2021-02-12 | Outpatient (REF) | payer MEDICARE | PROVIDERS: ATTEND Internal Medicine | DX: R50.9 Fever, unspecified (principal) ==

== ENCOUNTER → 2021-02-13 | Outpatient (REF) | payer MEDICARE ==
--- NOTE | 2021-02-13 15:59 | REPPI ---
INDICATION: COUGH COMPARISON: 11/14/2020 TECHNIQUE: Portable AP view of the chest FINDINGS: The mediastinum and cardiac silhouette are stable and again demonstrate prior sternotomy and CABG. The lung jama demonstrate stable chronic appearing changes primarily involving the bilateral lung bases (left greater than right) without acute consolidation. Blunting along the left diaphragmatic surface and costophrenic angle is unchanged and likely chronic-less likely representing small pleural effusion. Skeletal structures are intact. IMPRESSION: Chronic stable changes when compared with 11/14/2020 including blunting of the left costophrenic angle. However, subtle small left pleural reaction cannot be excluded.. <Electronically signed by John Javed > 02/13/21 0705
== END ==
PROVIDERS: ATTEND Internal Medicine
DX: R05 Cough (principal); Z95.1 Presence of aortocoronary bypass graft

== ENCOUNTER → 2021-02-13 | Outpatient (REF) | payer MEDICARE | PROVIDERS: ATTEND Internal Medicine | DX: R05 Cough (principal) ==

== ENCOUNTER → 2021-02-27 | Outpatient (REF) | payer MEDICARE ==
[2021-02-27 09:41] LABS: HEMATOCRIT 43.3 % (42.0-52.0); HEMOGLOBIN 13.3 g/dl (13.5-17.5); MEAN CORPUSCULAR HEMOGLOBIN 29.1 pg (27.0-33.0); MEAN CORPUSCULAR HGB CONC 30.7 g/dl (32.0-36.5); MEAN CORPUSCULAR VOLUME 94.7 fl (80.0-96.0); PLATELET COUNT, AUTOMATED 332 10^3/uL (150-450); RED BLOOD COUNT 4.57 10^6/uL (4.30-6.10); WHITE BLOOD COUNT 10.7 10^3/uL (4.0-10.0)
[2021-02-27 10:25] LABS: BLOOD UREA NITROGEN 17 MG/DL (7-18); CALCIUM LEVEL 9.3 MG/DL (8.8-10.2); CARBON DIOXIDE LEVEL 32 MEQ/L (21-32); CHLORIDE LEVEL 104 MEQ/L (98-107); CREATININE FOR GFR 0.72 MG/DL (0.70-1.30); GLOMERULAR FILTRATION RATE > 60.0 (>35); GLUCOSE, FASTING 122 MG/DL (70-100); POTASSIUM SERUM 4.1 MEQ/L (3.5-5.1); SODIUM LEVEL 142 MEQ/L (136-145)
== END ==
PROVIDERS: ATTEND Internal Medicine
DX: I25.10 Atherosclerotic heart disease of native coronary artery without angina pectoris (principal)

== ENCOUNTER → 2021-08-02 | Outpatient (REF) | payer MEDICARE ==
[~2021-08-02] MED LIST changes: +ERGO500029 PO; +QUET1TAB17 PO; -QUET25TA3 PO; -VITA50005 PO
[2021-08-02 11:39] LABS: HEMATOCRIT 44.2 % (42.0-52.0); HEMOGLOBIN 13.9 g/dl (13.5-17.5); MEAN CORPUSCULAR HEMOGLOBIN 29.2 pg (27.0-33.0); MEAN CORPUSCULAR HGB CONC 31.4 g/dl (32.0-36.5); MEAN CORPUSCULAR VOLUME 92.9 fl (80.0-96.0); PLATELET COUNT, AUTOMATED 217 10^3/uL (150-450); RED BLOOD COUNT 4.76 10^6/uL (4.30-6.10); WHITE BLOOD COUNT 12.3 10^3/uL (4.0-10.0)
[2021-08-02 13:41] LABS: BLOOD UREA NITROGEN 21 MG/DL (7-18); CALCIUM LEVEL 9.1 MG/DL (8.8-10.2); CARBON DIOXIDE LEVEL 32 MEQ/L (21-32); CHLORIDE LEVEL 103 MEQ/L (98-107); CREATININE FOR GFR 0.96 MG/DL (0.70-1.30); GLOMERULAR FILTRATION RATE > 60.0 (>35); GLUCOSE, FASTING 147 MG/DL (70-100); POTASSIUM SERUM 4.1 MEQ/L (3.5-5.1); SODIUM LEVEL 142 MEQ/L (136-145)
== END ==
PROVIDERS: ATTEND Physician Assistant
DX: I25.10 Atherosclerotic heart disease of native coronary artery without angina pectoris (principal)

== ENCOUNTER → 2021-11-27 | Outpatient (REF) | payer MEDICARE ==
[2021-11-27 17:22] LABS: HEMATOCRIT 48.6 % (42.0-52.0); HEMOGLOBIN 14.8 g/dl (13.5-17.5); MEAN CORPUSCULAR HEMOGLOBIN 29.1 pg (27.0-33.0); MEAN CORPUSCULAR HGB CONC 30.5 g/dl (32.0-36.5); MEAN CORPUSCULAR VOLUME 95.5 fl (80.0-96.0); PLATELET COUNT, AUTOMATED 251 10^3/uL (150-450); RED BLOOD COUNT 5.09 10^6/uL (4.30-6.10); WHITE BLOOD COUNT 21.9 10^3/uL (4.0-10.0)
[2021-11-27 18:39] LABS: ALBUMIN 3.7 GM/DL (3.2-5.2); ALT/SGPT 32 U/L (12-78); BILIRUBIN,DIRECT 0.1 MG/DL (0.0-0.2); BILIRUBIN,TOTAL 0.6 MG/DL (0.2-1.0); BLOOD UREA NITROGEN 24 MG/DL (7-18); CALCIUM LEVEL 9.1 MG/DL (8.8-10.2); CARBON DIOXIDE LEVEL 26 MEQ/L (21-32); CHLORIDE LEVEL 102 MEQ/L (98-107); GLOMERULAR FILTRATION RATE > 60.0 (>35); GLUCOSE, FASTING 210 MG/DL (70-100); POTASSIUM SERUM 4.1 MEQ/L (3.5-5.1); SODIUM LEVEL 140 MEQ/L (136-145); TOTAL PROTEIN 7.4 GM/DL (6.4-8.2)
== END ==
PROVIDERS: ATTEND Physician Assistant
DX: R11.10 Vomiting, unspecified (principal)

== ENCOUNTER → 2021-11-27 | Outpatient (CLI) | payer MEDICARE | PROVIDERS: ATTEND Internal Medicine | DX: R11.10 Vomiting, unspecified (principal) ==

== ENCOUNTER → 2021-11-28 | Outpatient (REF) | payer MEDICARE | PROVIDERS: ATTEND Internal Medicine | DX: J06.9 Acute upper respiratory infection, unspecified (principal) ==

== ENCOUNTER → 2021-11-28 | Outpatient (CLI) | payer MEDICARE | PROVIDERS: ATTEND Internal Medicine | DX: R05.9 Cough, unspecified (principal); R91.8 Other nonspecific abnormal finding of lung field ==

== ENCOUNTER → 2021-11-29 | Outpatient (REF) | payer MEDICARE ==
[2021-11-29 15:44] LABS: HEMATOCRIT 41.7 % (42.0-52.0); HEMOGLOBIN 12.9 g/dl (13.5-17.5); MEAN CORPUSCULAR HEMOGLOBIN 29.3 pg (27.0-33.0); MEAN CORPUSCULAR HGB CONC 30.9 g/dl (32.0-36.5); MEAN CORPUSCULAR VOLUME 94.6 fl (80.0-96.0); PLATELET COUNT, AUTOMATED 197 10^3/uL (150-450); RED BLOOD COUNT 4.41 10^6/uL (4.30-6.10)
[2021-11-29 16:31] LABS: CALCIUM LEVEL 9.2 MG/DL (8.8-10.2); CREATININE FOR GFR 1.45 MG/DL (0.70-1.30); POTASSIUM SERUM 3.5 MEQ/L (3.5-5.1)
== END ==
PROVIDERS: ATTEND Internal Medicine
DX: I25.10 Atherosclerotic heart disease of native coronary artery without angina pectoris (principal)

== ENCOUNTER → 2021-11-30 | Outpatient (REF) | payer MEDICARE ==
[2021-11-30 11:35] LABS: HEMATOCRIT 42.6 % (42.0-52.0); MEAN CORPUSCULAR HEMOGLOBIN 29.1 pg (27.0-33.0); MEAN CORPUSCULAR HGB CONC 30.5 g/dl (32.0-36.5); MEAN CORPUSCULAR VOLUME 95.5 fl (80.0-96.0); PLATELET COUNT, AUTOMATED 201 10^3/uL (150-450); RED BLOOD COUNT 4.46 10^6/uL (4.30-6.10); WHITE BLOOD COUNT 15.8 10^3/uL (4.0-10.0)
[2021-11-30 12:01] LABS: CALCIUM LEVEL 8.8 MG/DL (8.8-10.2); CREATININE FOR GFR 1.22 MG/DL (0.70-1.30); GLOMERULAR FILTRATION RATE 59.8 (>35); POTASSIUM SERUM 4.1 MEQ/L (3.5-5.1)
== END ==
PROVIDERS: ATTEND Internal Medicine
DX: I50.9 Heart failure, unspecified (principal)

== ENCOUNTER → 2021-12-04 | Outpatient (REF) | payer MEDICARE ==
[2021-12-04 10:52] LABS: HEMATOCRIT 46.2 % (42.0-52.0); HEMOGLOBIN 13.7 g/dl (13.5-17.5); MEAN CORPUSCULAR HEMOGLOBIN 28.9 pg (27.0-33.0); MEAN CORPUSCULAR HGB CONC 29.7 g/dl (32.0-36.5); MEAN CORPUSCULAR VOLUME 97.5 fl (80.0-96.0); PLATELET COUNT, AUTOMATED 284 10^3/uL (150-450); RED BLOOD COUNT 4.74 10^6/uL (4.30-6.10); WHITE BLOOD COUNT 12.3 10^3/uL (4.0-10.0)
[2021-12-04 11:16] LABS: BLOOD UREA NITROGEN 31 MG/DL (7-18); CALCIUM LEVEL 9.2 MG/DL (8.8-10.2); CARBON DIOXIDE LEVEL 30 MEQ/L (21-32); CHLORIDE LEVEL 106 MEQ/L (98-107); GLOMERULAR FILTRATION RATE > 60.0 (>35); GLUCOSE, FASTING 185 MG/DL (70-100); POTASSIUM SERUM 4.1 MEQ/L (3.5-5.1); SODIUM LEVEL 147 MEQ/L (136-145)
== END ==
PROVIDERS: ATTEND Internal Medicine
DX: J18.9 Pneumonia, unspecified organism (principal); J90 Pleural effusion, not elsewhere classified

== ENCOUNTER → 2022-03-28 | Outpatient (REF) | payer MEDICARE ==
[2022-03-28 12:18] LABS: HEMATOCRIT 45.3 % (42.0-52.0); HEMOGLOBIN 13.9 g/dl (13.5-17.5); MEAN CORPUSCULAR HEMOGLOBIN 29.1 pg (27.0-33.0); MEAN CORPUSCULAR HGB CONC 30.7 g/dl (32.0-36.5); PLATELET COUNT, AUTOMATED 215 10^3/uL (150-450); RED BLOOD COUNT 4.77 10^6/uL (4.30-6.10); WHITE BLOOD COUNT 11.2 10^3/uL (4.0-10.0)
[2022-03-28 12:43] LABS: BLOOD UREA NITROGEN 23 MG/DL (7-18); CALCIUM LEVEL 8.9 MG/DL (8.8-10.2); CARBON DIOXIDE LEVEL 34 MEQ/L (21-32); CHLORIDE LEVEL 104 MEQ/L (98-107); CREATININE FOR GFR 1.03 MG/DL (0.70-1.30); GLOMERULAR FILTRATION RATE > 60.0 (>35); GLUCOSE, FASTING 84 MG/DL (70-100); POTASSIUM SERUM 3.9 MEQ/L (3.5-5.1); SODIUM LEVEL 141 MEQ/L (136-145)
== END ==
PROVIDERS: ATTEND Internal Medicine
DX: I25.10 Atherosclerotic heart disease of native coronary artery without angina pectoris (principal)

== ENCOUNTER → 2022-08-01 | Outpatient (REF) | payer MEDICARE ==
[2022-08-01 12:03] LABS: HEMATOCRIT 45.5 % (42.0-52.0); MEAN CORPUSCULAR HEMOGLOBIN 29.5 pg (27.0-33.0); MEAN CORPUSCULAR HGB CONC 30.8 g/dl (32.0-36.5); PLATELET COUNT, AUTOMATED 215 10^3/uL (150-450); RED BLOOD COUNT 4.74 10^6/uL (4.30-6.10); WHITE BLOOD COUNT 9.9 10^3/uL (4.0-10.0)
[2022-08-01 12:57] LABS: BLOOD UREA NITROGEN 25 MG/DL (7-18); CALCIUM LEVEL 8.8 MG/DL (8.8-10.2); CARBON DIOXIDE LEVEL 30 MEQ/L (21-32); CHLORIDE LEVEL 104 MEQ/L (98-107); CREATININE FOR GFR 1.03 MG/DL (0.70-1.30); GLOMERULAR FILTRATION RATE > 60.0 (>35); GLUCOSE, FASTING 119 MG/DL (70-100); POTASSIUM SERUM 4.1 MEQ/L (3.5-5.1); SODIUM LEVEL 140 MEQ/L (136-145)
== END ==
PROVIDERS: ATTEND Internal Medicine
DX: I25.10 Atherosclerotic heart disease of native coronary artery without angina pectoris (principal)

== ENCOUNTER → 2022-11-28 | Outpatient (REF) | payer MEDICARE ==
[2022-11-28 11:30] LABS: HEMATOCRIT 45.3 % (42.0-52.0); HEMOGLOBIN 13.6 g/dl (13.5-17.5); MEAN CORPUSCULAR VOLUME 96.6 fl (80.0-96.0); PLATELET COUNT, AUTOMATED 231 10^3/uL (150-450); RED BLOOD COUNT 4.69 10^6/uL (4.30-6.10); WHITE BLOOD COUNT 9.5 10^3/uL (4.0-10.0)
[2022-11-28 12:07] LABS: BLOOD UREA NITROGEN 24 MG/DL (9-23); CARBON DIOXIDE LEVEL 28 MMOL/L (20-31); CHLORIDE LEVEL 105 MMOL/L (98-107); CREATININE FOR GFR 0.95 MG/DL (0.70-1.30); GLOMERULAR FILTRATION RATE > 60.0 (>35); GLUCOSE, FASTING 170 MG/DL (74-106); POTASSIUM SERUM 4.7 MMOL/L (3.5-5.1); SODIUM LEVEL 144 MMOL/L (136-145)
== END ==
PROVIDERS: ATTEND Physician Assistant
DX: I25.10 Atherosclerotic heart disease of native coronary artery without angina pectoris (principal)

== ENCOUNTER → 2022-12-26 | Outpatient (REF) | payer MEDICARE ==
[2022-12-26 12:43] LABS: HEMATOCRIT 48.7 % (42.0-52.0); HEMOGLOBIN 14.4 g/dl (13.5-17.5); MEAN CORPUSCULAR HGB CONC 29.6 g/dl (32.0-36.5); PLATELET COUNT, AUTOMATED 197 10^3/uL (150-450); RED BLOOD COUNT 4.97 10^6/uL (4.30-6.10); WHITE BLOOD COUNT 11.5 10^3/uL (4.0-10.0)
[2022-12-26 13:11] LABS: CALCIUM LEVEL 8.6 MG/DL (8.3-10.6); CREATININE FOR GFR 1.41 MG/DL (0.70-1.30); GLOMERULAR FILTRATION RATE 50.5 (>35); POTASSIUM SERUM 3.3 MMOL/L (3.5-5.1)
== END ==
PROVIDERS: ATTEND Physician Assistant
DX: U07.1 COVID-19 (principal); Z79.899 Other long term (current) drug therapy

== ENCOUNTER → 2022-12-31 | Outpatient (REF) | payer MEDICARE ==
[2022-12-31 10:23] LABS: HEMATOCRIT 44.2 % (42.0-52.0); HEMOGLOBIN 13.1 g/dl (13.5-17.5); MEAN CORPUSCULAR HEMOGLOBIN 28.9 pg (27.0-33.0); MEAN CORPUSCULAR HGB CONC 29.6 g/dl (32.0-36.5); MEAN CORPUSCULAR VOLUME 97.4 fl (80.0-96.0); PLATELET COUNT, AUTOMATED 224 10^3/uL (150-450); RED BLOOD COUNT 4.54 10^6/uL (4.30-6.10); WHITE BLOOD COUNT 12.6 10^3/uL (4.0-10.0)
[2022-12-31 10:57] LABS: BLOOD UREA NITROGEN 35 MG/DL (9-23); CALCIUM LEVEL 8.3 MG/DL (8.3-10.6); CARBON DIOXIDE LEVEL 32 MMOL/L (20-31); CHLORIDE LEVEL 116 MMOL/L (98-107); GLOMERULAR FILTRATION RATE > 60.0 (>35); GLUCOSE, FASTING 100 MG/DL (74-106); POTASSIUM SERUM 3.7 MMOL/L (3.5-5.1); SODIUM LEVEL 157 MMOL/L (136-145)
== END ==
PROVIDERS: ATTEND Physician Assistant
DX: U07.1 COVID-19 (principal); Z79.899 Other long term (current) drug therapy

== ENCOUNTER → 2023-01-03 | Outpatient (REF) | payer MEDICARE | PROVIDERS: ATTEND Physician Assistant | DX: R05.9 Cough, unspecified (principal); I70.0 Atherosclerosis of aorta; M43.00 Spondylolysis, site unspecified ==